=== PATIENT | male | born 2000 | race Caucasian/White ===

== ENCOUNTER → 2024-10-21 | Outpatient (CLI) | payer BC ==
[2024-10-28 13:40] LABS: Metanephrine, Free <25 pg/mL (< OR = 57); Normetanephrine, Free 677 pg/mL (< OR = 148); Total, Free (MN + NMN) 677 pg/mL (< OR = 205)
== END | disposition home or self-care (01) ==
LOC: LABWHC1 13:28
PROVIDERS: ATTEND Internal Medicine Cardiovascular Disease
DX: I34.0 Nonrheumatic mitral (valve) insufficiency (principal); R00.0 Tachycardia, unspecified
CPT/HCPCS: 36415; 82088; 82533; 83835; 84244